=== PATIENT | male | born 1950 | race African-American/Black ===

== ENCOUNTER 2023-10-30 15:23 | Inpatient (IN) | payer MEDICARE, MEDICAID ==
[~2023-10-30] VITALS: Ht 182.9 cm; Wt 55.8 kg
[2023-10-30] MEDS: SODIUM CHLORIDE 0.9% 1,000 ML IV ONE (16:05)
[2023-10-30 16:30] LABS: DIFFERENTIAL COMMENT 1; HEMATOCRIT. 54.5 % (42.0-52.0); HEMOGLOBIN. 18.7 g/dL (14.0-18.0); MEAN CORPUSCULAR HEMOGLOBIN 37.7 pg (28.0-32.0); MEAN CORPUSCULAR HGB CONC 34.3 g/dL (31.0-37.0); MEAN PLATELET VOLUME 7.1 fl (7.4-10.4); PLATELET 209 x1000/uL (130-400); RED BLOOD CELL COUNT 4.95 mill/uL (4.7-6.1); RED CELL DISTRIBUTION WIDTH 14.4 % (11.6-14.6); WHITE BLOOD COUNT 12.8 x1000/uL (4.5-11.0)
[2023-10-30 16:37] LABS: CHLORIDE 83 mEq/L (98-107); POTASSIUM 3.4 mEq/L (3.5-5.1); SODIUM 136 mEq/L (136-145)
[2023-10-30 16:39] LABS: CALCIUM 11.7 mg/dL (8.7-10.4); CARBON DIOXIDE 30 mEq/L (21-32)
[2023-10-30 16:44] LABS: CREATININE 3.5 mg/dL (0.6-1.3); GLUCOSE 145 mg/dL (70-105); UREA NITROGEN BLOOD 66 mg/dL (9-23)
[2023-10-30 16:45] LABS: PROTHROMBIN TIME 11.4 sec (9.6-11.0)
[2023-10-30 16:58] LABS: TROPONIN I HIGH SENSITIVITY 77 ng/L (3.0-53)
[2023-10-30 18:18] LABS: PLATELET ESTIMATE NORMAL
[2023-10-31 01:40] VITALS: BP 116/76; PULSE 88; RESP 18; TEMP 95.9
[2023-10-31 02:06] VITALS: BP 116/76; PULSE 90; RESP 20; TEMP 96
[2023-10-31 08:00] VITALS: BP 118/90; PULSE 86; RESP 18; TEMP 98.1
[2023-10-31 12:00] VITALS: BP 116/88; PULSE 93; RESP 18; TEMP 97.7
[2023-10-31] MEDS ORDERED: ONDANSETRON HCL 4MG/2ML INJ IV PRN (12:00)
[2023-10-31] MEDS ORDERED: ACETAMINOPHEN 325MG TABLET PO PRN (12:00)
[2023-10-31] MEDS: SODIUM CHLORIDE 0.9% 1,000 ML IV SCH (12:53)
[2023-10-31 13:37] LABS: BG BASE EXCESS 11.2 mmol/L (-2.0-2.0); BG CARBOXYHEMOGLOBIN 0.2 % (0.5-1.5); BG DEOXYHEMOGLOBIN 3.4 % (0.0-5.0); BG FRACTION INSPIRED OXYGEN 21; BG HCO3 ACT 33.8 mmol/L (22.0-26.0); BG METHEMOGLOBIN 0.4 % (0.0-1.5); BG OXYGEN SATURATION 96.6 % (92.0-98.5); BG PCO2 36.9 mmHg (35.0-45.0); BG PO2 83.7 mmHg (75.0-100.0); BG SAMPLE SITE LEFT BRACHIAL; BG TOTAL HEMOGLOBIN 18.6 g/dL (12.0-18.0); BG VENT MODE ROOM AIR
[2023-10-31] MEDS ORDERED: IPRATROPIUM/ALBUTEROL 0.5-3(2.5)MG/3ML NEB HHN PRN (14:45)
[2023-10-31] MEDS: INFLUENZA VACCINE 05/PF 0.5 ML SYRINGE IM ONE (15:00)
[2023-10-31] MEDS: PNEUMOCOCCAL 23-VAL P-SAC VAC 0.5 ML IM ONE (15:00)
[2023-10-31 16:00] VITALS: BP 119/90; PULSE 99; RESP 18; TEMP 97
[2023-10-31 17:45] LABS: TROPONIN I HIGH SENSITIVITY 85 ng/L (3.0-53)
[2023-10-31 20:00] VITALS: BP 118/90; PULSE 94; RESP 17; TEMP 97.1
[2023-11-01] VITALS: BP 113/93; PULSE 88; RESP 17; TEMP 97.9
[2023-11-01 04:00] VITALS: BP 114/92; PULSE 86; RESP 18; TEMP 97.5
[2023-11-01 07:07] LABS: BASOPHILS % 0.1 % (0.0-2.0); DIFFERENTIAL COMMENT 0; EOSINOPHILS % 0.3 % (0.0-5.0); HEMATOCRIT. 48.9 % (42.0-52.0); HEMOGLOBIN. 16.7 g/dL (14.0-18.0); MEAN CORPUSCULAR HEMOGLOBIN 37.3 pg (28.0-32.0); MEAN CORPUSCULAR HGB CONC 34.1 g/dL (31.0-37.0); MEAN CORPUSCULAR VOLUME 109.3 fL (80.0-94.0); MEAN PLATELET VOLUME 7.3 fl (7.4-10.4); MONOCYTES % 7.8 % (2.0-8.0); NEUTROPHILS % 82.8 % (40.0-76.0); PLATELET 173 x1000/uL (130-400); RED BLOOD CELL COUNT 4.47 mill/uL (4.7-6.1); RED CELL DISTRIBUTION WIDTH 14.4 % (11.6-14.6); WHITE BLOOD COUNT 9.4 x1000/uL (4.5-11.0)
[2023-11-01 07:26] LABS: CHLORIDE 96 mEq/L (98-107); SODIUM 141 mEq/L (136-145)
[2023-11-01 07:27] LABS: CALCIUM 10.5 mg/dL (8.7-10.4); CARBON DIOXIDE 35 mEq/L (21-32)
[2023-11-01 07:32] LABS: GLUCOSE 99 mg/dL (70-105)
[2023-11-01 07:33] LABS: LDL CHOLESTEROL 85 mg/dL (5-100); PROTEIN TOTAL 6.4 g/dL (6.0-8.3); TRIGLYCERIDE 73 mg/dL (0-150); UREA NITROGEN BLOOD 52 mg/dL (9-23)
[2023-11-01 07:34] LABS: ALANINE AMINOTRANSFERASE 85 IU/L (10-49); ALBUMIN 4.2 g/dL (3.2-4.8); ASPARTATE AMINOTRANSFERASE 126 IU/L (<34); CHOLESTEROL 137 mg/dL (<200); CREATINE KINASE > 1300 IU/L (46-171); CREATININE 1.6 mg/dL (0.6-1.3); HDL CHOLESTEROL 46 mg/dL (>55)
[2023-11-01 07:35] LABS: BILIRUBIN TOTAL 0.7 mg/dL (0.1-1.0); PHOSPHORUS 2.9 mg/dL (2.5-4.9)
[2023-11-01 08:00] VITALS: BP 113/90; PULSE 91; RESP 20; TEMP 98.1
[2023-11-01 12:00] VITALS: BP 120/97; PULSE 85; RESP 18; TEMP 97.3
[2023-11-01] MEDS: POTASSIUM CHLORIDE 20MEQ TABLET SR PO NR (13:58)
[2023-11-01 16:00] VITALS: BP 111/91; PULSE 91; RESP 18; TEMP 97.5
[2023-11-01 20:00] VITALS: BP 92/56; PULSE 80; RESP 18; TEMP 95.7
[2023-11-01] MEDS: ATORVASTATIN CALCIUM 40MG TABLET PO SCH (20:35)
[2023-11-01] MEDS: ENOXAPARIN 30MG/0.3ML SYR SUBCUT SCH (20:35)
[2023-11-02] VITALS: BP_SYST 122; BP_SYST 124; BP_DIAS 90; BP_DIAS 95; PULSE 70; PULSE 79; RESP 18; TEMP 96; TEMP 96.9
[2023-11-02 04:00] VITALS: BP 124/95; PULSE 79; RESP 18; TEMP 96.9
[2023-11-02 07:34] LABS: CHLORIDE 102 mEq/L (98-107); SODIUM 141 mEq/L (136-145)
[2023-11-02 07:35] LABS: CALCIUM 10.3 mg/dL (8.7-10.4); CARBON DIOXIDE 29 mEq/L (21-32)
[2023-11-02 07:40] LABS: CREATININE 1.3 mg/dL (0.6-1.3); GLUCOSE 90 mg/dL (70-105); UREA NITROGEN BLOOD 31 mg/dL (9-23)
[2023-11-02 07:42] LABS: CREATINE KINASE 1189 IU/L (46-171); PHOSPHORUS 2.6 mg/dL (2.5-4.9)
[2023-11-02 07:43] LABS: BASOPHILS % 0.2 % (0.0-2.0); EOSINOPHILS % 0.7 % (0.0-5.0); HEMATOCRIT. 49.2 % (42.0-52.0); HEMOGLOBIN. 16.5 g/dL (14.0-18.0); LYMPHOCYTES % 12.6 % (20.0-50.0); MEAN CORPUSCULAR HEMOGLOBIN 37.5 pg (28.0-32.0); MEAN CORPUSCULAR HGB CONC 33.5 g/dL (31.0-37.0); MEAN CORPUSCULAR VOLUME 111.9 fL (80.0-94.0); MEAN PLATELET VOLUME 7.5 fl (7.4-10.4); MONOCYTES % 8.3 % (2.0-8.0); NEUTROPHILS % 78.2 % (40.0-76.0); PLATELET 144 x1000/uL (130-400); RED BLOOD CELL COUNT 4.39 mill/uL (4.7-6.1); RED CELL DISTRIBUTION WIDTH 14.4 % (11.6-14.6); WHITE BLOOD COUNT 7.2 x1000/uL (4.5-11.0)
[2023-11-02 07:51] LABS: DIFFERENTIAL COMMENT 1
[2023-11-02 08:00] VITALS: BP 126/97; PULSE 78; RESP 18; TEMP 97.1
[2023-11-02] MEDS: ASPIRIN 81MG EC TABLET PO SCH (08:19)
[2023-11-02 09:06] LABS: IMMUNOGLOBULIN A 239 mg/dL (61-437); IMMUNOGLOBULIN G 655 mg/dL (603-1613); IMMUNOGLOBULIN M 61 mg/dL (15-143)
[2023-11-02 12:00] VITALS: BP 111/80; PULSE 73; RESP 20; TEMP 97.1
[2023-11-02 16:00] VITALS: BP 142/99; PULSE 85; RESP 18; TEMP 97.5
[2023-11-02 20:00] VITALS: BP 135/103; PULSE 79; RESP 20; TEMP 97
[2023-11-03 00:20] VITALS: BP 120/90; PULSE 87; RESP 17; TEMP 98
[2023-11-03 03:45] VITALS: BP 113/87; PULSE 76; RESP 15; TEMP 97.5
[2023-11-03 06:33] LABS: BASOPHILS % 0.2 % (0.0-2.0); DIFFERENTIAL COMMENT 0; EOSINOPHILS % 1.3 % (0.0-5.0); HEMATOCRIT. 42.8 % (42.0-52.0); HEMOGLOBIN. 14.5 g/dL (14.0-18.0); LYMPHOCYTES % 15.2 % (20.0-50.0); MEAN CORPUSCULAR HEMOGLOBIN 37.1 pg (28.0-32.0); MEAN CORPUSCULAR VOLUME 109.1 fL (80.0-94.0); MEAN PLATELET VOLUME 7.1 fl (7.4-10.4); MONOCYTES % 7.5 % (2.0-8.0); NEUTROPHILS % 75.8 % (40.0-76.0); PLATELET 142 x1000/uL (130-400); RED BLOOD CELL COUNT 3.92 mill/uL (4.7-6.1); RED CELL DISTRIBUTION WIDTH 14.5 % (11.6-14.6); WHITE BLOOD COUNT 5.8 x1000/uL (4.5-11.0)
[2023-11-03 07:00] LABS: CALCIUM 9.2 mg/dL (8.7-10.4); CHLORIDE 103 mEq/L (98-107); SODIUM 140 mEq/L (136-145)
[2023-11-03 07:01] LABS: CARBON DIOXIDE 28 mEq/L (21-32)
[2023-11-03 07:06] LABS: CREATININE 1.1 mg/dL (0.6-1.3); GLUCOSE 93 mg/dL (70-105); UREA NITROGEN BLOOD 24 mg/dL (9-23)
[2023-11-03 07:08] LABS: CREATINE KINASE 566 IU/L (46-171); PHOSPHORUS 2.2 mg/dL (2.5-4.9)
[2023-11-03 08:00] VITALS: BP 122/93; PULSE 75; RESP 18; TEMP 97.7
[2023-11-03 12:00] VITALS: BP 117/86; PULSE 56; RESP 18; TEMP 97.8
[2023-11-03] MEDS: POTASSIUM CHLORIDE 20MEQ TABLET SR PO SCH (12:03)
[2023-11-03] MEDS: MAGNESIUM 2 G PREMIX 50 ML IV SCH (12:09)
[2023-11-03 16:00] VITALS: BP 121/91; PULSE 74; RESP 18; TEMP 97.7
[2023-11-03 20:00] VITALS: BP 123/93; PULSE 70; RESP 19; TEMP 97.2
[2023-11-04] VITALS: BP 115/90; PULSE 71; RESP 18; TEMP 97.3
[2023-11-04 04:00] VITALS: BP 123/93; PULSE 70; RESP 16; TEMP 97.2
[2023-11-04 07:16] LABS: BASOPHILS % 0.4 % (0.0-2.0); CHLORIDE 104 mEq/L (98-107); HEMOGLOBIN. 15.3 g/dL (14.0-18.0); LYMPHOCYTES % 14.8 % (20.0-50.0); MEAN CORPUSCULAR HEMOGLOBIN 37.4 pg (28.0-32.0); MEAN CORPUSCULAR HGB CONC 33.3 g/dL (31.0-37.0); MEAN CORPUSCULAR VOLUME 112.5 fL (80.0-94.0); MEAN PLATELET VOLUME 7.7 fl (7.4-10.4); MONOCYTES % 10.5 % (2.0-8.0); NEUTROPHILS % 73.3 % (40.0-76.0); PLATELET 136 x1000/uL (130-400); POTASSIUM 3.8 mEq/L (3.5-5.1); RED BLOOD CELL COUNT 4.09 mill/uL (4.7-6.1); RED CELL DISTRIBUTION WIDTH 14.2 % (11.6-14.6); SODIUM 139 mEq/L (136-145)
[2023-11-04 07:17] LABS: CARBON DIOXIDE 25 mEq/L (21-32)
[2023-11-04 07:22] LABS: CREATININE 1.2 mg/dL (0.6-1.3); GLUCOSE 92 mg/dL (70-105); UREA NITROGEN BLOOD 15 mg/dL (9-23)
[2023-11-04 07:24] LABS: PHOSPHORUS 1.7 mg/dL (2.5-4.9)
[2023-11-04 08:00] VITALS: BP 121/93; PULSE 81; RESP 18; TEMP 97.7
[2023-11-04 08:21] LABS: DIFFERENTIAL COMMENT 1
[2023-11-04 12:00] VITALS: BP 134/105; PULSE 74; RESP 18; TEMP 97.6
[2023-11-04] MEDS: POTASSIUM PHOSPHATE 15 MMOL in DEXT 5% WATER 245 ML IV NR (13:18)
[2023-11-04 16:00] VITALS: BP 143/118; PULSE 91; RESP 18; TEMP 97.7
[2023-11-04] MEDS: CLONIDINE 0.1MG TABLET PO PRN (17:53)
[2023-11-04 20:00] VITALS: BP 109/86; PULSE 104; RESP 16; TEMP 97.5
[2023-11-05] VITALS: BP 103/78; PULSE 87; RESP 18; TEMP 97.1
[2023-11-05 04:00] VITALS: BP 130/104; PULSE 90; RESP 16; TEMP 97.5
[2023-11-05 07:07] LABS: CHLORIDE 102 mEq/L (98-107); POTASSIUM 3.5 mEq/L (3.5-5.1); SODIUM 136 mEq/L (136-145)
[2023-11-05 07:08] LABS: CALCIUM 9.3 mg/dL (8.7-10.4); CARBON DIOXIDE 28 mEq/L (21-32)
[2023-11-05 07:13] LABS: CREATININE 1.1 mg/dL (0.6-1.3); GLUCOSE 88 mg/dL (70-105); UREA NITROGEN BLOOD 17 mg/dL (9-23)
[2023-11-05 07:15] LABS: BASOPHILS % 0.2 % (0.0-2.0); EOSINOPHILS % 1.5 % (0.0-5.0); HEMATOCRIT. 42.3 % (42.0-52.0); HEMOGLOBIN. 14.3 g/dL (14.0-18.0); LYMPHOCYTES % 17.6 % (20.0-50.0); MEAN CORPUSCULAR HEMOGLOBIN 37.2 pg (28.0-32.0); MEAN CORPUSCULAR HGB CONC 33.7 g/dL (31.0-37.0); MEAN CORPUSCULAR VOLUME 110.3 fL (80.0-94.0); MEAN PLATELET VOLUME 7.5 fl (7.4-10.4); MONOCYTES % 10.3 % (2.0-8.0); NEUTROPHILS % 70.4 % (40.0-76.0); PHOSPHORUS 1.9 mg/dL (2.5-4.9); PLATELET 141 x1000/uL (130-400); RED BLOOD CELL COUNT 3.84 mill/uL (4.7-6.1); RED CELL DISTRIBUTION WIDTH 14.1 % (11.6-14.6); WHITE BLOOD COUNT 5.2 x1000/uL (4.5-11.0)
[2023-11-05 07:48] LABS: DIFFERENTIAL COMMENT 1
[2023-11-05 08:00] VITALS: BP 105/66; PULSE 81; RESP 18; TEMP 97.5
[2023-11-05 12:00] VITALS: BP_SYST 117; BP_SYST 130; BP_DIAS 86; BP_DIAS 95; PULSE 94; RESP 18; TEMP 97.3
[2023-11-05] MEDS ORDERED: ASPI-1406 PO (13:55)
[2023-11-05] MEDS ORDERED: LIP40 PO (13:55)
[2023-11-05] MEDS: MAGNESIUM 2 G PREMIX 50 ML IV NR (15:26)
[2023-11-05 16:00] VITALS: BP 103/83; PULSE 107; RESP 20; TEMP 97.5
[2023-11-06 08:00] VITALS: BP 100/70; PULSE 98; RESP 18; TEMP 97.7
[2023-11-06 12:00] VITALS: BP 128/80; PULSE 92; RESP 18; TEMP 97.1
[2023-11-06 16:00] VITALS: BP 125/97; PULSE 100; RESP 18; TEMP 97.7
[2023-11-06 20:00] VITALS: BP 101/76; PULSE 100; RESP 18; TEMP 97.5
[2023-11-07] VITALS: BP 144/92; PULSE 94; RESP 18; RESP 20; TEMP 97.5
[2023-11-07 04:00] VITALS: BP 152/114; PULSE 88; RESP 17; TEMP 97.5
[2023-11-07 06:53] LABS: BASOPHILS % 0.3 % (0.0-2.0); DIFFERENTIAL COMMENT 0; EOSINOPHILS % 1.5 % (0.0-5.0); HEMATOCRIT. 44.6 % (42.0-52.0); HEMOGLOBIN. 15.2 g/dL (14.0-18.0); LYMPHOCYTES % 17.4 % (20.0-50.0); MEAN CORPUSCULAR HEMOGLOBIN 37.3 pg (28.0-32.0); MEAN CORPUSCULAR HGB CONC 34.1 g/dL (31.0-37.0); MEAN CORPUSCULAR VOLUME 109.5 fL (80.0-94.0); MEAN PLATELET VOLUME 7.4 fl (7.4-10.4); MONOCYTES % 13.4 % (2.0-8.0); NEUTROPHILS % 67.4 % (40.0-76.0); PLATELET 185 x1000/uL (130-400); RED BLOOD CELL COUNT 4.07 mill/uL (4.7-6.1); RED CELL DISTRIBUTION WIDTH 14.4 % (11.6-14.6); WHITE BLOOD COUNT 6.4 x1000/uL (4.5-11.0)
[2023-11-07 07:05] LABS: CALCIUM 9.9 mg/dL (8.7-10.4); CARBON DIOXIDE 27 mEq/L (21-32); CHLORIDE 100 mEq/L (98-107); POTASSIUM 3.2 mEq/L (3.5-5.1); SODIUM 139 mEq/L (136-145)
[2023-11-07 07:11] LABS: CREATININE 1.2 mg/dL (0.6-1.3); GLUCOSE 82 mg/dL (70-105); UREA NITROGEN BLOOD 17 mg/dL (9-23)
[2023-11-07 07:13] LABS: PHOSPHORUS 2.3 mg/dL (2.5-4.9)
[2023-11-07 08:00] VITALS: BP 148/88; PULSE 95; RESP 18; TEMP 98.1
[2023-11-07 12:00] VITALS: BP 120/85; PULSE 103; RESP 18; TEMP 98
[2023-11-07] MEDS: POTASSIUM CHLORIDE 20MEQ/PACKET PO NR (15:32)
[2023-11-07 16:00] VITALS: BP 124/93; PULSE 107; RESP 18; TEMP 97.6
[2023-11-07] MEDS: POTASSIUM-SODIUM PHOSPHATE POWDER PACKET PO NR (17:19)
[2023-11-07] MEDS: MAGNESIUM OXIDE 400MG TABLET PO NR (17:20)
[2023-11-07 20:30] VITALS: BP 119/86; PULSE 99; RESP 18; TEMP 98.8
[2023-11-08] VITALS: BP_SYST 123; BP_SYST 143; BP_DIAS 93; PULSE 94; RESP 20; TEMP 97.9
[2023-11-08 04:00] VITALS: BP 125/99; PULSE 87; RESP 20; TEMP 98.1
[2023-11-08 08:00] VITALS: BP_SYST 115; BP_SYST 118; BP_DIAS 116; BP_DIAS 87; PULSE 63; PULSE 71; RESP 18; RESP 20; TEMP 97.7
[2023-11-08 10:37] LABS: BASOPHILS % 0.5 % (0.0-2.0); DIFFERENTIAL COMMENT 0; EOSINOPHILS % 1.1 % (0.0-5.0); HEMATOCRIT. 43.6 % (42.0-52.0); HEMOGLOBIN. 14.6 g/dL (14.0-18.0); LYMPHOCYTES % 14.2 % (20.0-50.0); MEAN CORPUSCULAR HEMOGLOBIN 36.6 pg (28.0-32.0); MEAN CORPUSCULAR HGB CONC 33.6 g/dL (31.0-37.0); MEAN PLATELET VOLUME 7.4 fl (7.4-10.4); MONOCYTES % 13.7 % (2.0-8.0); NEUTROPHILS % 70.5 % (40.0-76.0); PLATELET 234 x1000/uL (130-400); RED CELL DISTRIBUTION WIDTH 14.6 % (11.6-14.6); WHITE BLOOD COUNT 5.8 x1000/uL (4.5-11.0)
[2023-11-08 10:59] LABS: CALCIUM 10.3 mg/dL (8.7-10.4); CARBON DIOXIDE 30 mEq/L (21-32)
[2023-11-08 11:05] LABS: CREATININE 1.1 mg/dL (0.6-1.3); GLUCOSE 96 mg/dL (70-105); UREA NITROGEN BLOOD 13 mg/dL (9-23)
[2023-11-08 11:07] LABS: PHOSPHORUS 2.1 mg/dL (2.5-4.9)
[2023-11-08 12:00] VITALS: BP 124/99; PULSE 97; RESP 20; TEMP 97.9
[2023-11-08 12:16] LABS: CHLORIDE 102 mEq/L (98-107); POTASSIUM 3.4 mEq/L (3.5-5.1); SODIUM 139 mEq/L (136-145)
[2023-11-08 16:00] VITALS: BP 142/111; PULSE 113; RESP 18; TEMP 97.7
[2023-11-08 20:00] VITALS: BP 137/107; PULSE 94; RESP 18; TEMP 98
[2023-11-09] VITALS (7 sets, daily range): BP systolic 126–145; BP diastolic 93–111; PULSE 71–104; RESP 18; TEMP 96.8–98.1; O2SAT 97
[2023-11-10] VITALS: BP 130/103; PULSE 78; RESP 20; TEMP 97
== END 2023-11-10 02:13 | DRG 64 ==
LOC: ER 15:23 → 5WST 17:50 → 8WST 10-31 01:36
PROVIDERS: ADMIT Internal Medicine; ATTEND Internal Medicine
DX: I63.541 Cerebral infarction due to unspecified occlusion or stenosis of right cerebellar artery (principal); N17.0 Acute kidney failure with tubular necrosis; M62.82 Rhabdomyolysis; Z68.1 Body mass index [BMI] 19.9 or less, adult; R62.7 Adult failure to thrive; J43.9 Emphysema, unspecified; I10 Essential (primary) hypertension; N40.0 Benign prostatic hyperplasia without lower urinary tract symptoms; N28.1 Cyst of kidney, acquired; K57.30 Diverticulosis of large intestine without perforation or abscess without bleeding; E87.6 Hypokalemia; E83.52 Hypercalcemia; Z82.49 Family history of ischemic heart disease and other diseases of the circulatory system; W19.XXXA Unspecified fall, initial encounter; Y93.89 Activity, other specified; Y92.89 Other specified places as the place of occurrence of the external cause; Y99.8 Other external cause status
CPT/HCPCS: 36415; 36600; 70551; 71045; 71250; 74176; 80048; 80053; 80061; 82375; 82550; 82784; 82805; 82962; 83735; 83880; 84100; 84484; 85025; 86334; 90732; 92610; 93005; 93970; 97116; 97162; 97166; 97530; 97535; 99291; J1650; J3475; J3490; J7030; J7060